=== PATIENT | female | born 1955 | race Caucasian/White ===

== ENCOUNTER → 2017-01-27 | Day surgery (SDC) | payer MEDICARE, OTHER ==
[~2017-01-27] VITALS: Ht 152.4 cm; Wt 132.0 kg
[~2017-01-27] MED LIST: ALCO1PAD; BLOOD GLUCOSE T1 TES; BUPIVACAINE HCL PF 0.5% 30 ML VIAL ONE; CARD180C5 PO; DEXT 5%-NACL 0.45% 1000 ML INJ 1,000 ML IV SCH; DIGO0.25 PO; EMPA1TAB PO; FAMOTIDINE 20 MG/2 ML VIAL ONE; FEXO15TA PO; FLUT50SP EACH NARE; FURO20TA PO; GABA100C4 PO; GLIM4TAB PO; IBUP800T23 PO; LACTATED RINGER'S 1000 ML INJ 1,000 ML ONE; LACTTAB13 PO; LANCETS1 MI1; LOSA100T PO; METF1000 PO; METO100T9 PO; MIDAZOLAM HCL 2 MG/2 ML VIAL ONE; MULTTAB24; ONDANSETRON HCL 4 MG/2 ML VIAL IV PUSH ONE; POTA10TA2 PO; POVIDONE IODINE 10% OINT 1 PACKET TOPICAL ONE; PRAV40TA2 PO; PROPOFOL 200 MG/20 ML AMP IV ONE; RANI300T PO; SODIUM CHLORIDE 0.9% FLUSH 5 ML FLUSH IVF PRN; SODIUM CHLORIDE 0.9% FLUSH 5 ML FLUSH IVF SCH; SYMB160A INH; VENTAER INH; XARE20TA PO
[2017-01-27 09:30] VITALS: BP 160/56; PULSE 64; RESP 22; TEMP 97.7; O2SAT 95
[2017-01-27 09:56] LABS: MEAN CELL VOLUME 86.6 FL (80.0-100.0); MEAN CORPUSCULAR HEMOGLOBIN 28.5 PG (27.0-34.0); MEAN CORPUSCULAR HGB CONC 32.9 % (32.0-36.0); PLATELET COUNT 156 TH/MM3 (150-450); RED BLOOD COUNT 4.85 MIL/MM3 (4.00-5.30); RED CELL DISTRIBUTION WIDTH 14.1 % (11.6-17.2); REVIEW FLAG FINAL; WHITE BLOOD COUNT 7.6 TH/MM3 (4.0-11.0)
--- NOTE | 2017-01-27 11:46 | HP.UPD ---
H&P Update Date: Jan 27, 2017 Note The Pre-Admit History and Physical Examination regarding the above named patient was reviewed (including, but not limited to, vital signs, medications, allergies, co-morbid conditions), and upon re-examination it is noted that: Indicated with "X" x - the patient's condition has not significantly changed since the last examination. [] - the patient's condition has changed since the last examination. Changes: Aria Jamison MD Jan 27, 2017 11:46
[2017-01-27 12:58] VITALS: PULSE 80
--- NOTE | 2017-01-27 12:58 | HHI.PR ---
Immediate Post Op Note Procedure Date: Jan 27, 2017 Pre Op Diagnosis: (1) CTS (carpal tunnel syndrome) Post Op Diagnosis: (1) CTS (carpal tunnel syndrome) Surgeon: Aria Jamison [employer] Train Repairer(s): None Procedure: Open release of the left carpal tunnel. Anesthesia: General Drains: None Tourniquet time (min at mmHg) 18 minutes at 220 mm Hg Patient to: PACU Patient Condition: Good Date/Time of Procedure: SEE SURGICAL CARE RECORD Aria Jamison MD Jan 27, 2017 12:58
[2017-01-27 14:15] VITALS: BP 135/58; PULSE 65; RESP 16; TEMP 97.7; O2SAT 94
--- NOTE | 2017-01-27 15:02 | EKG ---
Date Performed: 01/27/2017 Time Performed: 10:21:25 PTAGE: 61 years EKG: ATRIAL FIBRILLATION WITH SOMEWHAT SLOW VENTRICULAR RESPONSE INCOMPLETE RIGHT BUNDLE BRANCH BLOCK MINOR NONSPECIFIC ST-T WAVE CHANGE Compared to previous tracing, no significant change ABNORMAL ECGPREVIOUS TRACING : 10/01/2015 16.37 DOCTOR: Siva Espitia Interpretating Date/Time 01/30/2017 07:58:50
--- NOTE | 2017-01-29 09:30 | MP ---
cc: MELANIE LOUIE M.D. DATE OF SURGERY: 01/27/2017 PREOPERATIVE DIAGNOSIS Left carpal tunnel syndrome. POSTOPERATIVE DIAGNOSIS Left carpal tunnel syndrome. PROCEDURE Open release of left carpal tunnel. ANESTHESIA General. SURGEON Melanie Louie MD INDICATIONS 61-year-old female with left carpal tunnel syndrome for release. FINDINGS At the completion of the procedure the transverse carpal ligament had been completely divided. There was a significant amount of compression. The tourniquet time was 18 minutes. PROCEDURE The patient was seen preoperatively where the site and side were identified and marked. The patient was then taken to the operating room, placed in supine position. Her identity was checked against the arm band and the consent form. Site and side confirmed, time-out called prior to beginning the procedure. The left upper extremity was prepped with Hibiclens and draped in usual sterile fashion. The area to be incised was outlined with a marking pen as longitudinal incision just to the ulnar side of the midline. The arm was exsanguinated and tourniquet inflated to 220 mmHg. Bupivacaine 0.5% plain was used to make a median nerve block. A 15 blade was then used to make the incision down through skin, down to the subcutaneous tissue. Dissection was continued down to the palmar fascia. Distally a small hole was poked in the palmar fascia and using the ulnar artery as a guide Guyon's canal was released. The ulnar artery and nerve were retracted ulnarly, median nerve retracted medially and using the flexor tendon to the ring finger as a guide the transverse carpal ligament was divided. Once the forearm fascia was reached the scissor was kept in a slightly open position and using the push technique divided for approximately 3 cm into the distal forearm. The median nerve was then carefully from the roof of the carpal tunnel and adhesions were lysed. Once the nerve was freed and there is no significant scar tissue around it, the wound was copiously irrigated with saline. The surrounding tissue at the operative site was injected with additional bupivacaine. The wound was closed with running 4-0 Nylon suture. The tourniquet was released after 18 minutes of tourniquet time, pressure was applied after several minutes. There was no evidence of any oozing and a dry dressing was applied using povidone-iodine ointment, Adaptic Telfa, 4x4s and hand wrap. The patient was then taken from the operating room to the recovery room in satisfactory condition having tolerated the procedure well. Postoperative instructions include keeping the arm elevated, keeping it clean and dry and returning in several days for follow up. The patient was given a prescription for ibuprofen one every 8 hours as needed for pain, 60 were prescribed. MD ROSITA Garcia/TAWNY /1:00 PM /9:15 AM
== END | disposition home or self-care (01) ==
LOC: PHSDC 07:57
PROVIDERS: ATTEND Specialist
DX: G56.02 Carpal tunnel syndrome, left upper limb (principal); I48.91 Unspecified atrial fibrillation; I45.10 Unspecified right bundle-branch block; I11.0 Hypertensive heart disease with heart failure; I50.9 Heart failure, unspecified; I25.10 Atherosclerotic heart disease of native coronary artery without angina pectoris; J44.9 Chronic obstructive pulmonary disease, unspecified; G47.30 Sleep apnea, unspecified; G62.9 Polyneuropathy, unspecified; E11.9 Type 2 diabetes mellitus without complications; E78.5 Hyperlipidemia, unspecified; K21.9 Gastro-esophageal reflux disease without esophagitis; E66.9 Obesity, unspecified; Z68.43 Body mass index [BMI] 50.0-59.9, adult; Z79.01 Long term (current) use of anticoagulants; Z79.84 Long term (current) use of oral hypoglycemic drugs; Z79.51 Long term (current) use of inhaled steroids; Z79.899 Other long term (current) drug therapy
CPT/HCPCS: 01810; 36415; 64721; 85027; 93005; J2250; J2405; J3010; J7120